=== PATIENT | female | born 1965 | race Caucasian/White ===

== ENCOUNTER 2016-11-20 07:15 | Emergency (ER) | payer OTHER ==
[~2016-11-20] VITALS: Ht 152.4 cm; Wt 72.6 kg
[2016-11-20] MEDS ORDERED: LISINOPRIL20 M1 PO (07:33)
[2016-11-20] MEDS ORDERED: AMLODIPINE BESYL5 M1 PO (07:33)
[2016-11-20] MEDS ORDERED: CYANOCOBAL1000 MCG/2 IM (07:33)
--- NOTE | 2016-11-20 07:35 | ED GI/GU/ABDOMINAL COMPLAINT ---
History of Present Illness General Chief Complaint: Abdominal Pain/Flank Pain Stated Complaint: LEFT SIDE ABD PAIN Source: patient, old records Exam Limitations: no limitations Vital Signs & Intake/Output Vital Signs & Intake/Output Vital Signs Date Time Temp Pulse Resp B/P Pulse O2 O2 Flow FiO2 Ox Delivery Rate 11/20 1226 97.9 77 18 135/69 99 Room Air 11/20 0959 97.8 98 18 186/86 100 11/20 0719 98.2 128 18 195/90 97 Room Air Allergies Coded Allergies: Penicillins (Severe, RASH 11/20/16) ciprofloxacin (Severe, SOB 11/20/16) clarithromycin (Severe, RASH 11/20/16) erythromycin base (Severe, RASH 11/20/16) Reconcile Medications Amlodipine Besylate 5 MG TABLET 1 TAB PO DAILY HTN (Reported) Cyanocobalamin (Vitamin B-12) (Cyanocobalamin Injection) 1,000 MCG/ML VIAL 1 ML IM Q30D VITAMIN (Reported) Lisinopril 20 MG TABLET 1 TAB PO DAILY HTN (Reported) Triage Note: 51 Y/O REMAEL MORNING. DENIES N/V/D. DENIES URINARY SYMPTOMS (USES CATHETER DUE TO HX BLADDER CANCER). DENIES FEVERS. B/P ELEVATED - PT STATES THIS IS NORMAL FOR HER () Triage Nurses Notes Reviewed? yes LMP (ages 10-50): post menopausal ? n Is pt currently ? No Onset: 1 day Duration: day(s):, constant, continues in ED, getting worse Timing: recent history Quality/Severity: aching, cramping, sharpness, severe Location: left lower quadrant Radiation: periumbilical Activities at Onset: none Prior Abdominal Problems: none Past Sexual History: Unobtainable at this time Modifying Factors: Worsens With: movement, palpation. Associated Symptoms: abdominal pain HPI: 1 to 2 days prior to admission patient complains of progressive left lower quadrant pain described as achy crampy sharp radiating to periumbilical area constant. She denies fever chills nausea vomiting diarrhea chest pain cough shortness breath headache dysuria rash bleeding previous episodes. Past History Travel History Traveled to [place] past 21 day No Medical History Any Pertinent Medical History? 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 No Review of Systems Review of Systems Constitutional: Reports: no symptoms. EENTM: Reports: no symptoms. Respiratory: Reports: no symptoms. Cardiovascular: Reports: no symptoms. GI: Reports: see HPI, abdominal pain. Genitourinary: Reports: no symptoms. Musculoskeletal: Reports: no symptoms. Skin: Reports: no symptoms. Neurological/Psychological: Reports: no symptoms. Hematologic/Endocrine: Reports: no symptoms. Immunologic/Allergic: Reports: no symptoms. All Other Systems: Reviewed and Negative Physical Exam Physical Exam General Appearance: well developed/nourished, alert, awake, anxious, moderate distress, obese Head: atraumatic, normal appearance Eyes: Bilateral: normal appearance, PERRL, EOMI, normal inspection. Ears, Nose, Throat, Mouth: hearing grossly normal, moist mucous membrane Neck: normal inspection, supple, full range of motion, normal alignment Respiratory: normal breath sounds, chest non-tender, no respiratory distress, quiet respiration, lungs clear Cardiovascular: regular rate/rhythm, normal peripheral pulses, norml femoral pulses equa Peripheral Pulses: 4+ carotid (R), 4+ carotid (L) Gastrointestinal: normal bowel sounds, soft, guarding, tenderness (left lower quadrant) Back: normal inspection, normal range of motion, no vertebral tenderness Extremities: normal range of motion, no ligament instability Neurologic/Psych: no motor/sensory deficits, awake, alert, oriented x 3, normal gait, normal mood/affect, 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 No Severe Sepsis Present: No Septic Shock Present: No Progress Differential Diagnosis: diverticulitis, gastritis, UTI/pyelo Plan of Care: Orders Procedure Date/time Status URINALYSIS 11/20 0735 Complete LIPASE 11/20 0735 Complete COMPREHENSIVE METABOLIC PANEL 11/20 0735 Complete CBC WITHOUT DIFFERENTIAL 11/20 0735 Complete Current Medications Sig/Scott Start time Last Medication Dose Stop Time Status Admin Ciprofloxacin 400 MG ONCE ONE 11/20 1045 CAN (Ciprofloxacin) 11/20 1144 N/A 1 UNIT (No Carrier) Ciprofloxacin 400 MG ONCE ONE 11/20 1000 CAN (Ciprofloxacin) 11/20 1001 Ciprofloxacin 400 MG ONCE 11/20 0000 CAN (Ciprofloxacin) 11/20 2359 N/A 1 UNIT (No Carrier) Laboratory Tests 11/20/16 1120: Urinalysis LIGHT H, Urine Color YEL, Urine Clarity HAZY H, Urine pH 6.5, Ur Specific [place] <= 1.005, Urine Protein TRACE H, Urine Ketones NEG, Urine Nitrite POS H, Urine Bilirubin NEG, Urine Urobilinogen 0.2, Ur Leukocyte Esterase TRACE H, Ur Microscopic SEDIMENT EXAMINED, Urine RBC 1-3, Urine WBC > 75 H, Ur Epithelial Cells FEW, Urine Bacteria MOD H, Urine Mucus MOD H, Urine Hemoglobin SMALL H, Urine Glucose NEG 11/20/16 0807: Anion Gap 9, Estimated GFR > 60, BUN/Creatinine Ratio 28.6 H, Glucose 112 H, Calcium 10.3 H, Total Bilirubin 0.9, AST 27, ALT 58 H, Alkaline Phosphatase 89 , Total Protein 7.7, Albumin 4.5, Globulin 3.2, Albumin/Globulin Ratio 1.4, Lipase 104, CBC w Diff NO MAN DIFF REQ, RBC 4.85, MCV 90.2, MCH 30.6, RDW 12.3, MPV 8.5, Gran % 78.1 H, Lymphocytes % 15.9 L, Monocytes % 5.5, Eosinophils % 0.2, Basophils % 0.3, Absolute Granulocytes 10.9 H, Absolute Lymphocytes 2.2, Absolute Monocytes 0.8 H, Absolute Eosinophils 0, Absolute Basophils 0, PUBS MCHC 34.0 Diagnostic Imaging: Viewed by Me: CT Scan. Discussed w/RAD: CT Scan. Radiology Impression: 1. There are inflammatory changes around the distal descending large bowel, consistent with sequelae of diverticulitis. There is no evidence of complication at present. 2. There are postoperative changes in the right lower quadrant with anastomotic sutures in small bowel and at the right bladder dome, which may be consistent with neobladder construction. There are multiple surgical clips in the pelvis bilaterally. Correlate with surgical history. 3. There are areas of low attenuation at the lower pole of the left kidney, which may be consistent with atypical cysts. Recommend ultrasound correlation for further assessment. Initial ED EKG: none Departure Departure Time of Disposition: 1225 Disposition: HOME OR SELF CARE Condition: Stable Clinical Impression Primary Impression: Diverticulitis Qualifiers: Diverticulitis site: large intestine Diverticulitis bleeding: without bleeding Diverticulitis complication: without perforation or abscess Qualified Code: K57.32 - Diverticulitis of large intestine without perforation or abscess without bleeding Secondary Impressions: UTI (urinary tract infection) Qualifiers: Urinary tract infection type: site unspecified Hematuria presence: without hematuria Qualified Code: N39.0 - Urinary tract infection, site not specified Referrals: QUETA SOMMER,LILIBETH Shafer (PCP/Family) Departure Forms: Customer Survey General Discharge Information Prescriptions: Current Visit Scripts Sulfamethoxazole/Trimethoprim (Bactrim Ds Tablet) 1 TAB PO BID #20 TAB Metronidazole (Flagyl) 1 TAB PO TID #30 TAB Ibuprofen 1 TAB PO Q6PRN PRN pain #50 TAB Hyoscyamine Sulfate (Levsin-Sl) 1-2 TAB SL Q4P PRN abdominal pain #60 TAB Oxycodone HCl/Acetaminophen (Percocet 5-325 MG Tablet) 1 TAB PO Q6P PRN severe pain #15 TAB
[2016-11-20 08:27] LABS: ABSOLUTE BASOPHIL COUNT 0 /CUMM (0.0-0.2); ABSOLUTE EOSINOPHIL COUNT 0 /CUMM (0.0-0.7); ABSOLUTE GRANULOCYTE CT 10.9 /CUMM (1.4-6.5); ABSOLUTE LYMPH COUNT 2.2 /CUMM (1.2-3.4); ABSOLUTE MONOCYTE COUNT 0.8 /CUMM (0.10-0.60); BASOPHIL % 0.3 % (0.0-2.0); EOSINOPHIL % 0.2 % (0-5); GRANULOCYTE % 78.1 % (42.2-75.2); HEMATOCRIT 43.8 % (37-47); MEAN CORPUSCULAR HGB 30.6 PG (27.0-31.0); MEAN CORPUSCULAR VOLUME 90.2 FL (81.0-99.0); MEAN PLATELET VOLUME 8.5 FL (7.4-10.4); PLATELET COUNT 294 /CUMM (130-400); RBC DISTRIBUTION WIDTH 12.3 % (11.5-14.5); RED BLOOD CELL CT 4.85 /CUMM (4.20-5.40); WHITE BLOOD CELL COUNT 13.9 /CUMM (4.8-10.8)
--- NOTE | 2016-11-20 09:51 | CT SCAN REPORT ---
EXAMINATION: CT ABDOMEN AND PELVIS WITH CONTRAST CLINICAL INFORMATION: Left lower quadrant tenderness and guarding. Diverticulitis. COMPARISON: None. TECHNIQUE: Multidetector volumetric imaging was performed of the abdomen and pelvis before and after the IV administration of 93 mL of Optiray 320 intravenous contrast. Sagittal and coronal reformatted images were obtained on the technologist's workstation. DLP: 353.23 mGy-cm. FINDINGS: LUNG BASES: There is mild atelectasis in the inferior lingula. There are no pleural effusions. LIVER, GALLBLADDER, AND BILIARY TREE: The liver is normal in size, shape, and attenuation. No focal hepatic lesion or biliary ductal dilatation is present. The gallbladder is unremarkable with no evidence of radiopaque gallstones, gallbladder wall thickening, or obvious pericholecystic inflammatory changes. PANCREAS: Unremarkable. SPLEEN: Unremarkable. ADRENAL GLANDS: Unremarkable. KIDNEYS AND URETERS: The kidneys are normal in size, shape, and attenuation. There is a 0.8 cm area of low attenuation at the lower pole of the left kidney, which has Hounsfield units greater than simple fluid. There is a 0.6 cm similar area more anteriorly at the lower pole of the left kidney. No hydronephrosis, hydroureter, or calculi seen. There is no perinephric stranding. BLADDER: The bladder is partially distended. There are postoperative changes at the bladder dome on the right, adjacent to loops of small bowel which demonstrate anastomotic sutures. GASTROINTESTINAL TRACT: The stomach is decompressed. There are anastomotic sutures in the loops of small bowel in the right lower quadrant adjacent to the bladder. The appendix is normal. There are a few small pericecal lymph nodes. There are multiple diverticula in the large bowel. There is thickening of the wall of the large bowel in the distal descending colonic region with increased stranding in the pericolonic fat. While no large diverticula demonstrated in this region, the inflammation is relatively focal and is consistent with sequelae of diverticulitis. No bowel perforation is demonstrated. More distally, there is no evidence of bowel inflammation. ABDOMINAL WALL: No significant hernia is appreciated. LYMPH NODES: There are multiple small mesenteric lymph nodes, and as described above there are small pericecal lymph nodes. There are multiple surgical clips in the pelvis bilaterally, which may be consistent with resection of lymph nodes in the past. VASCULAR: Unremarkable. PELVIC VISCERA: The uterus and adnexa are not visualized. There is no free fluid in the pelvis. Surgical clips are seen in the pelvis bilaterally. OSSEOUS STRUCTURES: There is a mild retrolisthesis of L5 and S1 with vacuum disc changes and narrowing of intervertebral disc height. There are facet arthropathic changes at L4-L5 and L5-S1. There are no acute osseous findings. IMPRESSION: 1. There are inflammatory changes around the distal descending large bowel, consistent with sequelae of diverticulitis. There is no evidence of complication at present. 2. There are postoperative changes in the right lower quadrant with anastomotic sutures in small bowel and at the right bladder dome, which may be consistent with neobladder construction. There are multiple surgical clips in the pelvis bilaterally. Correlate with surgical history. 3. There are areas of low attenuation at the lower pole of the left kidney, which may be consistent with atypical cysts. Recommend ultrasound correlation for further assessment.
[2016-11-20 12:26] VITALS: BP 135/69
[2016-11-20] MEDS ORDERED: IBUPROFEN800 M1 PO (12:32)
[2016-11-20] MEDS ORDERED: FLAGYL500 MG PO ×2 (12:32→12:56)
[2016-11-20] MEDS ORDERED: BACTRIM DS TAB1 EACH PO ×2 (12:32→12:56)
[2016-11-20] MEDS ORDERED: PERCOCET 5-3251 EACH PO ×3 (12:32→12:57)
[2016-11-20] MEDS ORDERED: LEVSIN-SL0.125 MG SL ×2 (12:32→12:56)
[2016-11-20] MEDS ORDERED: IBUPROFEN600 M1 PO (12:56)
== END 2016-11-20 13:02 ==
LOC: ERH 07:15
PROVIDERS: Emergency Medicine
DX: K57.92 Diverticulitis of intestine, part unspecified, without perforation or abscess without bleeding (principal); N39.0 Urinary tract infection, site not specified; I10 Essential (primary) hypertension; Z87.891 Personal history of nicotine dependence
CPT/HCPCS: 74177; 81001; 96361; 96365; 96375; J0744; J1885; Q9965